=== PATIENT | male | born 1985 | race Caucasian/White ===

== ENCOUNTER → 2019-08-19 | Outpatient (CLI) ==
[~2019-08-19] MED LIST: PERCOCET PO
== END ==
LOC: EDUNIT# 10:25 → M LABSMTC 10:58
PROVIDERS: ATTEND Anesthesiology
DX: Z01.818 Encounter for other preprocedural examination (principal); Z11.59 Encounter for screening for other viral diseases
CPT/HCPCS: C9803; U0003

== ENCOUNTER → 2019-08-22 | Day surgery (SDC) | payer OTHER ==
[~2019-08-22] VITALS: Ht 180.3 cm; Wt 84.4 kg
[~2019-08-22] MED LIST changes: +ACETAMINOPHEN TAB 650MG DOSE (2X325MG) PO PRN; +EPINEPHrine 1MG/ML INJ 30ML MD-VIAL As Ordered ONE; +HYDROMORPHONE HCL 0.5 MG/ 0.5 ML SYRINGE (J1170 PER 1) IV PRN; +LIDOCAINE 1% MDV 20ML VIAL ONE; +LIDOCAINE 1% MDV 20ML VIAL SQ PRN; +LIDOCAINE 2% 100MG/5ML SDV (FOR ANES.) As Ordered ONE; +LR 1,000 ML IV ONE; +LR 1,000 ML IV SCH; +METOCLOPRAMIDE INJ 10MG/2ML VIAL (J2765 PER 1) As Ordered ONE; +MIDAZOLAM INJ 2MG/2ML VIAL (J2250 PER 1MG) As Ordered ONE; +MIDAZOLAM INJ 2MG/2ML VIAL (J2250 PER 1MG) IV ONE; +MORPHINE 2 MG/ML 1ML VIAL (J2270) IV PRN; +ONDANSETRON 4MG/2ML VIAL As Ordered ONE; +ONDANSETRON 4MG/2ML VIAL IV PRN; +PERCOCET 5MG/325MG TAB PO PRN; +ROCURONIUM BROMIDE 50 MG/5 ML VIAL As Ordered ONE; +ROPIvacaine 0.5% 30ML INJECTION (J2795 PER 1MG) ONE; +ceFAZolin SOD 2 GM in IV 1 EA IV ONE; +dexameTHASONE 10MG/1ML VIAL PRES.FREE (J1100 PER 1MG) ONE; +fentaNYL 100 MCG/2 ML INJECTION (J3010) As Ordered ONE; +fentaNYL 100 MCG/2 ML INJECTION (J3010) IV ONE; +fentaNYL 100 MCG/2 ML INJECTION (J3010) IV PRN; +oxyCODONE 5MG TAB PO PRN; +propofoL 200 MG/20 ML VIAL As Ordered ONE
[2019-08-22 15:20] VITALS: BP 121/74
--- NOTE | 2019-08-22 15:56 | RO ---
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 PLANNED PROCEDURE: Right shoulder arthroscopy, bony Bankart repair. PROCEDURE PERFORMED: Right shoulder arthroscopy, bony Bankart repair. OPERATIVE SURGEON: Stevo Thompson MD DISPATCHER SERVICE: Dr. Donald TYPE OF ANESTHESIA: General anesthetic, plus block. CHIEF ENTERPRISE ARCHITECT: MAIRA Saucedo OPERATIVE PREAMBLE: This 33-year-old man sustained right shoulder dislocation. He experienced instability with the shoulder in slight abduction. We talked about pros and cons, risks and benefits of nonsurgical management versus operative fixation of bony Bankart fragment. He wished to go ahead. I reiterated the risks in preoperative holding, marked right upper extremity and proceeded to surgery. OPERATIVE REPORT: Patient was brought to the operating theater, administered general anesthetic. They were given 2 grams of IV Ancef. They were placed right lateral decubitus with traction positioner. An axillary roll was placed as well as all bony prominences were padded. Sequential compressive devices (SCDs) were used on the down leg. The limb was prepped and draped in the usual sterile fashion allowing over 3 minutes of prep solution drying time. Preoperative time-out was performed to the site, the patient and surgery. The limb was draped using the traction setup with approximately 10 pounds of traction at 45 degrees of abduction. Standard posterior arthroscopy portal was created. I in fact had to use two other small incisions posteriorly as he was quite a large individual to achieve visualization into the joint. I then created an anterior portal. I placed two cannulas, one just posterior to the biceps tendon, one just at approximately 5 o'clock just superior to the subscapularis tendon. I performed a thorough diagnostic arthroscopy. Undersurface of the rotator cuff appeared normal. Inferior axillary pouch was normal. No obvious loose bodies. Biceps was stable on solid probing. No obvious large SLAP tear or a bucket handle component. There is an obvious bony Bankart lesion from 1 to 6 o'clock the anterior surface of the glenoid. I then inserted an arthroscope anteriorly through the high portal. I used a combination of shaver to create a bony bleeding bed for healing debriding the fracture callus on both sides of the fracture. I used a 45 degree elevator to get all the way down medial on the anterior aspect of the glenoid. I released as much scar tissue as possible. This was quite challenging given that it was already 3 weeks out. I released any and all scar tissue so that the bony fragment could be reduced to the anterior aspect of glenoid. I then used a double-loaded biocomposite suture tack, 3 x 14.5 mm anchor low down in the middle of the glenoid inferior to the fracture site. The sutures were brought out through the anterior cannula. I then used a 45 degree suture lasso at one of the stripes and one of the solid sutures at the fracture site inferior and superior to this in order to create a mattress construct. These sutures were passed underneath the fracture as well as the labrum. I then docked these sutures outside the cannula. I then inserted a Peek suture tack knotless 3 x 12.7 mm inferiorly at approximately the 5 o'clock joann on the glenoid face getting up onto the rim. I then again used the 45 degree suture lasso loop to pass this around and tension it appropriately in knotless fashion and cut the suture short. I then brought two of the limbs onto the face and drilled for a biocomposite PushLock 2.9 mm anchor. These were placed on the face appropriately tensio the bony Bankart fragment at approximately 3 o'clock and 4 o'clock on the face. The repair was stable and solid to probing. Arthroscopy pictures were taken and saved on the system. The joint was thoroughly irrigated. Wounds cleaned with wet-to-dry dressings, followed by closure of the portal sites with #3-0 Monocryl sutures. Steri-Strip were applied, followed by Adaptic, 4 x 8 gauze and ABD dressing and held in place with cloth tape. The patient's upper extremity was placed into a sling after having been removed traction setup. The patient was woken up from general anesthetic, transferred off the operative table and taken postanesthesia care unit in stable condition. All sponge, needle, and instruments counts were correct. No complications. Estimated blood loss 100 mL. Plan for patient is to be in a sling for 6 weeks. They can start immediate pendulum and exercise as well as hand, wrist, and elbow exercises . They will be discharged home according to day surgery criteria. MAIRA Saucedo was instrumental in achieving visualization, passing sutures, completing the case. RICHELLE
== END | disposition home or self-care (01) ==
LOC: M SDC 09:49
PROVIDERS: ATTEND Orthopaedic Surgery Sports Medicine
DX: M25.311 Other instability, right shoulder (principal); M75.91 Shoulder lesion, unspecified, right shoulder; F17.218 Nicotine dependence, cigarettes, with other nicotine-induced disorders
CPT/HCPCS: 29806; 64415; C1713; J0690; J1100; J1170; J2250; J2405; J2765; J2795; J3010